=== PATIENT | male | born 1965 | race Caucasian/White ===

== ENCOUNTER 2024-10-28 22:22 | Emergency (ER) | payer OTHER, SELFPAY ==
[2024-10-28 22:35] VITALS: BP 156/89; PULSE 68; RESP 16; TEMP 36.6; O2SAT 99; BMI 30.4
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
[2024-10-29 01:30] VITALS: BP 151/97; PULSE 75; RESP 16; O2SAT 97
[2024-10-29] MEDS: KETOROLAC 30 MG/ML VIAL 60 MG IM (02:01)
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
[2024-10-29] MEDS: HYDROCODONE/ACET 5/325 PREPACK 1 BOTTLE MISC (02:20)
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
--- NOTE | 2024-10-29 02:24 | PM.PROC.1 ---
Procedures Date/Time Date of procedure: 10/29/24 Time of procedure: 02:25 Laceration Site: face Size (cm): 2 Description: linear Depth: simple, single layer Skin layer closed with: other (dermabond, steristrips)
[2024-10-29 03:02] VITALS: BP 132/87; PULSE 89; RESP 16; O2SAT 97
== END 2024-10-29 03:14 | disposition home or self-care (01) ==
PROVIDERS: Emergency Provider Emergency Medicine
DX: S42.022A Displaced fracture of shaft of left clavicle, initial encounter for closed fracture (principal); V29.99XA Rider (driver) (passenger) of other motorcycle injured in unspecified traffic accident, initial encounter
CPT/HCPCS: 73000; 96372; 99283; J1885